=== PATIENT | female | born 1985 | race Caucasian/White ===

== ENCOUNTER 2020-07-02 20:56 | Emergency (ER) | payer OTHER ==
[2020-07-02] MEDS ORDERED: MACROBID 1100 MG/CAP PO (21:38)
[2020-07-02] MEDS ORDERED: VITAMIN D-40010 MCG PO (21:39)
[2020-07-02] MEDS ORDERED: NATURAL IRON65 MG PO (21:39)
[2020-07-02] MEDS ORDERED: VITAMIN C PUR1000 MG PO (21:40)
[2020-07-02 22:36] LABS: EOS % 0.6 % (1.0-5.0); HEMATOCRIT 39.3 % (37.0-47.0); HEMOGLOBIN 12.8 g/dL (12.5-16.0); LYMPH# 1.3 (1.50-4.00); MEAN CELL VOLUME 89 fl (78-100); MEAN CORPUSCULAR HEMOGLOBIN 29 pg (27-31); MEAN CORPUSCULAR HGB CONC 33 g/dL (33-37); MEAN PLATELET VOLUME 11.1 fl (7.4-10.4); MONO # 0.8 (0.20-0.80); NEU # 4.6 (1.40-6.50); PLATELET COUNT 186 K/mm3 (130-400); RED BLOOD COUNT 4.41 M/mm3 (4.10-5.30); RED CELL DISTRIBUTION WIDTH 15.3 % (11.5-14.5); WHITE BLOOD COUNT 6.7 K/mm3 (4.8-10.8)
[2020-07-02 22:53] LABS: URINE APPEARANCE HAZY; URINE BILIRUBIN NEGATIVE (NEGATIVE); URINE BLOOD TRACE (NEGATIVE); URINE COLOR YELLOW; URINE GLUCOSE NEGATIVE (NEGATIVE); URINE KETONE NEGATIVE (NEGATIVE); URINE LEUKOCYTE ESTERASE TRACE (NEGATIVE); URINE MUCUS PRESENT (NOT PRESENT); URINE NITRATE NEGATIVE (NEGATIVE); URINE PROTEIN(semi-quant) NEGATIVE (NEGATIVE); URINE UROBILINOGEN NORMAL (NORMAL); URINE WBC 16-30 /hpf (0-3)
[2020-07-02] MEDS ORDERED: LEVOFLOXACIN500 M1 PO (23:11)
[2020-07-02 23:26] VITALS: BP 98/60
== END 2020-07-02 23:26 | disposition home or self-care (01) ==
LOC: ED 20:56
PROVIDERS: Family Medicine
DX: N39.0 Urinary tract infection, site not specified (principal)